=== PATIENT | female | born 1990 | race Asian ===

== ENCOUNTER 2025-01-09 15:16 | Outpatient (AMB) | payer OTHER, SELFPAY ==
--- NOTE | 2025-01-09 16:04 | AMB.GYNCLNOT ---
Vital Signs 01/09/25 16:05 Height 1.63 m Height Method Stated Weight 53.694 kg Weight Measurement Method Standing Scale BMI 20.3 BP 103/68 Blood Pressure Source Automatic Cuff Blood Pressure Location Right Upper Arm Position Sitting Respiration 15 Pulse 76 Pulse Source Monitor Temp 97.8 F Temp Source Oral Pulse Oximetry (%) 98 Oxygen Delivery Method Room Air Allergies/Home Meds Allergies & Medications Allergies penicillin Allergy (Mild, Uncoded 01/09/25 16:05) Rash Medication Reconciliation valacyclovir 1 gram tablet 2,000 mg (2 x 1 gram) PO BID Cold Sores #18 tabs 12/14/24 [Rx Confirmed 01/09/25] Intake Visit Data Collection New Patient or Established: Established Patient (seen at [facility] within 3 years) Reason for Visit:: ANNUAL WELLNESS Seen by Clinical Staff ONLY (RN/MA): No Translator Required: No Do You Feel Safe at Home: Yes Authorities Contacted: N/A PCP or OBGYN visit in last 3 months: Yes Hx Now: No Are you currently on any form of Control: Yes Pain Present Currently: No Pain Scale Used: Feldman-Barry/Numerical Pain scale:: 0 Smoking Status Smoking Status: Never smoker 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 NO MENSTRUAL PERIOD Questionnaires Covid-19 Vaccine Questionnaire Has patient been vacinated for Covid-19 Have you been vacinated for Covid-19: Yes PHQ-9 PHQ-2 Over the last 2 weeks, how often have you been bothered by any of the following problems? 1. Little interest or pleasure in doing things: not at all 2. Feeling down, depressed, or hopeless: not at all Total score: 0 PHQ-9 3. Trouble falling or staying asleep, or sleeping too much: Not at all 4. Feeling tired or having little energy: Not at all 5. Poor appetite or overeating: Not at all 6. Feeling bad about yourself - or that you are a failure or have let yourself or your family down: Not at all 7. Trouble concentrating on things, such as reading the newspaper or watching television: Not at all 8. Moving or speaking so slowly that other people could have noticed? - Or the opposite - being so fidgety or restless that you have been moving around a lot more than usual: not at all 9. Thoughts that you would be better off or of hurting yourself in some way: Not at all Total score: 0 Source: Developed by Drs. Kang Mullen, Patricia To, Baljinder Foster and colleagues, with an educational alicia from [employer]. 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 izabela x 3 year. happy with method. NO PAINS. NO Menses. no PMH, ETOH occ, no surgery. no IT HELP DESK MANAGER complaints Review of Systems Review of Systems Systems Reviewed: All systems reviewed, normal except as documented Exam Narrative Physical exam: abdomen soft, non tender. no masses. perineum clear, no lesions seen. clear mucous discharge. uterus mid position,non tender, mobile. nullip cervix, iud string in cervix General Limitations: no limitations General Appearance: alert, in no apparent distress, comfortable, cooperative, healthy appearing, well developed and well groomed Head Head exam: atraumatic, normocephalic and normal inspection Resp Respiratory exam: Present normal lung sounds bilaterally Card Cardiovascular exam: Present regular rate, normal rhythm and normal heart sounds Psych Psychiatric exam: Present normal affect and normal mood Office Procedures OB Clinic LOC & Office Proc's Nursing/Assessment Patient Status: Established Patient OB Clinic Nursing Assessment: Medication Reconciliation, Update PMH in EMR and Vital Signs OB Clinic Coordination of Care: Complex Care and Chronic Disease 1-5, Consent,records obtained, informed consent, Education Simp Pt/Fam, Lab and Imaging orders and Staff clarify orders Miscellaneous Interventions: Pelvic/Pap Smear Set up Established Patient Charge Established Patient Point Assignment: 120 Established Patient Point Charge: EP Level 3 (80-115) In Clinic Procedures Pap Smear: Yes Assessment & Plan Diagnosis / Problem List (1) Encounter for well woman exam with routine gynecological exam: Status: Acute (2) Encounter for Papanicolaou smear of cervix: Status: Acute (3) High-risk human papillomavirus (HPV) DNA not detected in cervical specimen: Status: Acute (4) Encounter for routine checking of intrauterine contraceptive device: Status: Acute Plan pap today. discuss string check q month. review method and side effect, PAINS. diet and regular exercise. self breast exam. rtc as needed Additional Plan Follow Up: 1 Year (f/u on IUD) [employer] AND FORMER: Papsmear Pap Smear Procedure Chaparone in room during procedure?: No Pre-op diagnosis general: pap smear Post-op diagnosis procedure note: Same Procedure Notes:: placed in lithotomy. nullip cervix, specimen obtained. no bleeding. tolerated well Papsmear completed: yes
[2025-01-09 16:05] VITALS: BP 103/68; PULSE 76; RESP 15; TEMP 36.6; O2SAT 98; BMI 20.3
== END 2025-01-09 16:47 | disposition home or self-care (01) ==
LOC: HODSOBC 15:16
PROVIDERS: Supervising Provider Advanced Practice Midwife; Visit Provider Advanced Practice Midwife
DX: Z01.419 Encounter for gynecological examination (general) (routine) without abnormal findings (principal); Z11.51 Encounter for screening for human papillomavirus (HPV); Z30.431 Encounter for routine checking of intrauterine contraceptive device; Z88.0 Allergy status to penicillin
CPT/HCPCS: 99213; Q0091; G0463